=== PATIENT | male | born 1950 | race Caucasian/White ===

== ENCOUNTER 2020-04-12 07:28 | Outpatient (REF) | payer BC, SELFPAY ==
[2020-04-12 11:09] LABS: MANUAL DIFF FLAG NO
[2020-04-12 11:14] LABS: Basophils Percent Auto 0.2 % (0-2); Eosinophils Absolute Auto 0.1 X10*3/uL (0.0-0.4); Eosinophils Percent Auto 1.6 % (0-4); Hematocrit 41.6 % (42-52); Hemoglobin 14.6 g/dl (14.0-18.0); Imm Gran Abs Auto 0.01 X10*3/uL (0.00-0.03); Imm Gran Pct Auto 0.2 % (0.0-0.4); Lymphocytes Absolute Auto 1.7 X10*3/uL (1.2-4.9); Lymphocytes Percent Auto 30.2 % (20-40); Mean Corpuscular HGB Conc 35.1 g/dl (31.0-36.0); Mean Corpuscular Hemoglobin 31.9 pg (27.0-33.0); Monocytes Absolute Auto 0.5 X10*3/uL (0.1-1.2); Monocytes Percent Auto 8.5 % (2-11); Neutrophils Absolute Auto 3.4 X10*3/uL (2.0-8.3); Neutrophils Percent Auto 59.3 % (45-73); Platelet Count 206 X10*3/uL (160-400); Red Blood Count 4.57 X10*6/uL (4.60-5.80); White Blood Count 5.7 X10*3/uL (4.8-10.8)
[2020-04-12 11:37] LABS: Glucose Urine UA NEG (NEG); Leukocyte Esterase Urine NEG (NEG); Nitrite Urine NEG (NEG); Urine Blood NEG (NEG); Urine Ketones NEG (NEG); Urine Protein NEG (NEG-TRACE)
[2020-04-12 11:38] LABS: Appearance Urine CLEAR; Color Urine YELLOW
[2020-04-12 11:47] LABS: Alanine Aminotransferase 32 U/L (0-40); Albumin Level 4.3 g/dL (3.5-5.0); Alkaline Phosphatase 43 U/L (39-117); Anion Gap 11 (12-20); Aspartate Amino Transferase 27 U/L (5-37); Bilirubin Total 0.6 mg/dL (0.0-1.0); Blood Urea Nitrogen 27 mg/dL (9-16); Calcium 9.3 mg/dL (8.4-10.2); Carbon Dioxide 29 mmol/L (22-29); Chloride 105 mmol/L (96-108); Cholesterol 121 mg/dL; Estimated Glomerular Filt Rate > 60; Glucose Fasting 94 mg/dL (60-99); HDL Cholesterol 36 mg/dL; LDL Cholesterol Calculated 65 mg/dl; Potassium 3.8 mmol/l (3.3-5.1); Sodium 141 mmol/L (135-145); Total Protein 6.8 g/dL (6.5-8.0); Triglycerides 102 mg/dL
[2020-04-12 11:52] LABS: Bacteria Urine TRACE /LPF; Mucus Urine TRACE /LPF; RBC Urine 0 /HPF (0); Squamous Epithelial Cell Urine TRACE /LPF; WBC Urine 0-2 /HPF (0-4)
[2020-04-12 12:09] LABS: SARS COV2 IgG Negative (Negative)
[2020-04-12 12:11] LABS: Prostate Specific Antigen Scr 1.56 ng/mL (<0.05-4.0)
== END 2020-04-12 07:29 | disposition home or self-care (01) ==
LOC: HO.HMGCLDS 07:28
PROVIDERS: PCP Internal Medicine; Visit Provider Internal Medicine
DX: Z00.00 Encounter for general adult medical examination without abnormal findings (principal); E78.5 Hyperlipidemia, unspecified; I10 Essential (primary) hypertension; Z12.5 Encounter for screening for malignant neoplasm of prostate
CPT/HCPCS: 36415; 80053; 80061; 81001; 84153; 85025; 86769

== ENCOUNTER 2023-09-22 06:22 | Day surgery (SDC) | payer MEDICARE, SELFPAY ==
[2023-09-22 06:26] VITALS: BMI 29.8
[2023-09-22 06:51] VITALS: BP 136/78; PULSE 51; RESP 16; TEMP 36.6; O2SAT 95
[2023-09-22] MEDS: Lactated Ringers 1,000 ML 80 ML IVCONT (06:57)
--- NOTE | 2023-09-22 07:30 | P.CONAN_ITS ---
HPI - Anesthesia Eval Consult details Narrative: for upper and colon PMFSH Past Medical History Medical History CAD (coronary artery disease) HTN (hypertension) Family History Family history of problems with anesthesia: No Surgical History History of Problems with Anesthesia: Yes Social History Social History Patient Tobacco Use Status: Former Tobacco user Use of substances other than those prescribed or required for medical reasons: No Are you DNR?: No Advance Directives: No Advance Directives Information Provided: Yes Meds Allergies Allergy/AdvReac Type Severity Reaction Status Date / Time No Known Allergies Allergy Verified 09/22/23 06:36 [No Known Allergies*] Active Medications: Current Medications Lactated Ringer's (Lr) 1,000 mls @ 80 mls/hr IVCONT .[id number] TAE Last Admin: 09/22/23 06:57 Dose: 80 mls/hr Sodium Biphosphate/Sodium Phosphate (Sodium Phosphate,Bryan-Dibasic 133 Ml Enema) 133 ml OR ONCE PRN PRN Reason: Poor Colonoscopy Prep Results Home Medications ?Medication ?Instructions ?Recorded ?Confirmed ?Last Taken ?Type Claritin 10 mg DAILY 09/19/23 09/22/23 09/20/23 History Crestor 40 mg DAILY 09/19/23 09/22/23 09/20/23 History Prilosec 40 mg BID 09/19/23 09/22/23 09/21/23 History Tumeric 500 mg PO DAILY 09/19/23 09/22/23 09/15/23 History amlodipine 5 mg DAILY 09/19/23 09/22/23 09/20/23 History aspirin 81 mg PO DAILY 09/19/23 09/22/23 09/20/23 History hydrochlorothiazide 12.5 mg DAILY 09/19/23 09/22/23 09/20/23 History ipratropium bromide 0.03 intranasal DAILY 09/19/23 Unknown History losartan 50 mg DAILY 09/19/23 09/22/23 09/21/23 History metoprolol succinate 25 mg DAILY 09/19/23 09/22/23 09/20/23 History Exam Height,Weight and Vital Signs: Height 5 ft 10 in Weight 94.347 kg Last Vital Signs Temp 97.9 F 09/22/23 06:51 Pulse 51 09/22/23 06:51 Resp 16 09/22/23 06:51 BP 136/78 09/22/23 06:51 Pulse Ox 95 09/22/23 06:51 O2 Del Method Room Air 09/22/23 06:51 Airway Mallampati Class: III TM Dist: <=3cm Neck ROM: Limited Heart: rrr Lungs: cta Assessment and Plan Assessment Anesthesia Assessment: Anesthesia Plan Discussed and Chart Reviewed Final Anesthetic Review Family History of Problems with Anesthesia: No History of Problems with Anesthesia: Yes NPO: Yes ASA Class: III Final Preanesthetic Review: No Changes in Pt Med Stat, Meds/Allgs Chart Reviewed, Consent Obtained/Reviewed and Anes Risks/Benef Reviewed Patient Risk: Intermediate Procedure Risk: Low Anesthetic Plan Anesthetic Plan: MAC: Disposition: Standard PACU
[2023-09-22 08:37] VITALS: BP 116/73; PULSE 70; RESP 12; TEMP 36.2; O2SAT 93
--- NOTE | 2023-09-22 08:41 | PM.OP ---
Brief Operative Note Date of Service: 09/22/23 Pre-op diagnosis: GERD, Screening Post-op diagnosis: other (Hiatal hernia, Diverticulosis) Procedure: EGD with biopsies, Colonoscopy to the cecum Surgeon: Stanislav Mcbride MD Anesthesia: MAC Was an Box Sealing Machine Feeder used for this Procedure?: No Estimated blood loss (mL): 2.0 Pathology: other (A. Gastric antrum B. EG Junction at 35cm) Condition: stable Disposition: PACU
[2023-09-22 08:52] VITALS: BP 113/68; PULSE 55; RESP 16; TEMP 36.6; O2SAT 94
--- NOTE | 2023-09-22 09:00 | OP_ITS ---
DATE OF SERVICE: 09/22/2023 SURGEON: Stanislav Mcbride MD INDICATIONS: The patient presents for evaluation of gastroesophageal reflux, personal history of tubular adenoma of the colon, and need for colorectal cancer screening. Full consent obtained from him for this, including risks of bleeding and perforation. PREOPERATIVE DIAGNOSIS: POSTOPERATIVE DIAGNOSIS: PROCEDURE PERFORMED: Esophagogastroduodenoscopy with biopsies, and colonoscopy to the cecum. ESTIMATED BLOOD LOSS: COMPLICATIONS: ANESTHESIA: Monitored anesthesia care. ASSISTANTS: SPECIMENS: PREOPERATIVE DIAGNOSES: Gastroesophageal reflux, personal history of tubular adenoma of the colon, and colorectal cancer screening. POSTOPERATIVE DIAGNOSES: Gastroesophageal reflux, personal history of tubular adenoma of the colon, and colorectal cancer screening, hiatal hernia, diverticulosis, and internal hemorrhoids. DESCRIPTION OF PROCEDURE: The patient was placed in the left lateral decubitus position. The Olympus video gastroscope was passed in the posterior oropharynx and upper esophagus under direct vision. The scope was passed slowly to the distal esophagus. The gastroesophageal junction appeared at 35 cm. There was some slight irregularity, consistent with reflux, but no evidence of esophagitis nor any definitive evidence of Biggs's mucosa. The scope entered the stomach. There was a small to moderate-sized hiatal hernia. The scope was advanced to the pylorus. The duodenum was cannulated to the descending portion. The duodenum including the bulb appeared normal without mass or ulceration. The scope was withdrawn back to the stomach. The gastric antrum and body appeared normal other than some erythema. There was no evidence of any erosions or ulcerations. Biopsies were obtained from the antrum. There was good peristalsis. The scope was retroflexed, visualizing the proximal stomach carefully which appeared normal, without mass or ulceration, other than some benign hyperplastic-appearing gastric polyps, which were not biopsied today as they had been biopsied in the past. The scope was straightened and withdrawn back to the esophagus. Biopsies were obtained at the EG junction at 35 cm. Proximal to this, the esophageal mucosa appeared normal. The scope was withdrawn from the patient. He was turned around for colonoscopy. The digital rectal exam revealed no abnormalities. The Olympus video pediatric colonoscope was entered into the rectum and advanced easily to the cecum. Once in the cecum, I did identify normal-appearing cecal pouch with appendiceal orifice and a normal-appearing ileocecal valve. The entire cecum and ileocecal valve appeared normal. The scope was then slowly withdrawn assessing all mucosal surfaces carefully. Preparation was excellent. I did not visualize any sign of polyps, colitis, nor angiodysplasia. There was a mild amount of sigmoid diverticulosis. In the rectum, scope was retroflexed visualizing internal hemorrhoids, but no other pathology. The scope was straightened and withdrawn from the patient. He tolerated the procedures well and was returned to the recovery area in stable condition. IMPRESSION: 1. Hiatal hernia, gastroesophageal reflux. 2. Diverticulosis. 3. Internal hemorrhoids. PLAN: The results of the biopsies will be checked. He was advised to continue his daily Prilosec for symptomatic relief of reflux. He was advised to resume his low-dose aspirin today for underlying coronary artery disease and previous stent placement. He has been off Plavix for 5 days, but was advised to resume that by tomorrow. It appears that his local fire technician had advised him to stop the Plavix but he advised me that his fire technician in [place], where he had the stents placed, advised him to continue that long-term. I did advise him to review that with both of his cardiologists. I would recommend a repeat colonoscopy in 5 years. He will otherwise see me on a p.r.n. basis. MD TOO Blunt/MARIA / [id number] MTDD
--- NOTE | 2023-09-22 12:50 | PC.NURSE ---
24 hour update documented on paper chart.
== END 2023-09-22 09:19 | disposition home or self-care (01) ==
PROVIDERS: PCP Internal Medicine; Visit Provider Internal Medicine
PROC: (CPT 43239; principal; 2023-09-22 07:30)
DX: Z12.11 Encounter for screening for malignant neoplasm of colon (principal); Z86.010 Personal history of colon polyps; K57.30 Diverticulosis of large intestine without perforation or abscess without bleeding; K64.8 Other hemorrhoids; K21.9 Gastro-esophageal reflux disease without esophagitis; K31.7 Polyp of stomach and duodenum; K44.9 Diaphragmatic hernia without obstruction or gangrene; Z79.82 Long term (current) use of aspirin; Z79.899 Other long term (current) drug therapy
CPT/HCPCS: 43239; G0105; 88305; 88313; 88342; J2250; J2704